=== PATIENT | female | born 2000 | race Caucasian/White ===

== ENCOUNTER 2021-03-22 12:41 | Emergency (ER) | payer SELFPAY ==
[~2021-03-22] VITALS: Ht 160 cm; Wt 50.0 kg
[2021-03-22] MEDS ORDERED: SODIUM CHLORIDE 0.9% 1,000 ML IV NR (15:00)
[2021-03-22 15:54] LABS: CHLORIDE 114 mEq/L (98-107)
[2021-03-22 15:58] LABS: HEMATOCRIT. 36.4 % (36.0-48.0); HEMOGLOBIN. 12.4 g/dL (12.0-16.0); MEAN CORPUSCULAR HEMOGLOBIN 29.7 pg (28.0-32.0); MEAN CORPUSCULAR VOLUME 87.2 fL (81.0-99.0); MEAN PLATELET VOLUME 8.3 fl (7.4-10.4); PLATELET 230 x1000/uL (130-400); RED BLOOD CELL COUNT 4.17 mill/uL (4.2-5.4); RED CELL DISTRIBUTION WIDTH 12.8 % (11.6-14.6)
[2021-03-22 16:48] LABS: CLARITY URINE CLEAR (CLEAR); COLOR URINE YELLOW (YELLOW); KETONES URINE TRACE (NEGATIVE); LEUKOCYTE ESTERASE URINE NEGATIVE (NEGATIVE); NITRITE URINE NEGATIVE (NEGATIVE); OCCULT BLOOD URINE 2+ (NEGATIVE); PROTEIN URINE NEGATIVE (NEGATIVE); SPECIFIC GRAVITY URINE 1.007 (1.005-1.030); UROBILINOGEN URINE 0.2 E.U./dL (0.2-1.0)
[2021-03-22 17:31] VITALS: BP 103/58
[2021-03-22 18:50] LABS: PLATELET ESTIMATE NORMAL
== END 2021-03-22 17:32 | disposition home or self-care (01) ==
LOC: ER 12:41
DX: R10.9 Unspecified abdominal pain (principal); Z20.822 Contact with and (suspected) exposure to COVID-19
CPT/HCPCS: 36415; 80053; 81003; 81025; 85025; 87426; 93005; 99284